=== PATIENT | female | born 1990 | race Hispanic/Latino ===

== ENCOUNTER 2016-04-05 15:06 | Inpatient (IN) | payer OTHER ==
[2016-04-05] MEDS ORDERED: PEPCID PO ONE (15:10)
[2016-04-05] MEDS ORDERED: TYLENOL PO PRN (15:10)
[2016-04-05] MEDS ORDERED: PEPCID PO PRN (15:10)
[2016-04-05] MEDS ORDERED: LR 500 ML IV ONE (15:10)
[2016-04-05] MEDS ORDERED: REGLAN PO ONE (15:10)
[2016-04-05] MEDS ORDERED: AMPICILLIN 2 GM/NS 100 ML IV ONE (15:10)
[2016-04-05] MEDS ORDERED: PEPCID IV PRN (15:10)
[2016-04-05] MEDS ORDERED: STADOL IV PRN (15:10)
[2016-04-05] MEDS ORDERED: ZOFRAN IV PRN (15:10)
[2016-04-05] MEDS ORDERED: KEFZOL 1 GM/D5W 50 ML IV PRN (15:10)
[2016-04-05] MEDS ORDERED: SODIUM CHLORIDE 0.9% INJ SCH (15:15)
[2016-04-05] MEDS ORDERED: LR 1,000 ML IV SCH (15:15)
[2016-04-05] MEDS ORDERED: PITOCIN 30 UNITS/LR 500 ML IV SCH (15:15)
[2016-04-05 16:16] LABS: URINE SOURCE VOIDED
[2016-04-05 16:21] LABS: BILIRUBIN URINE NEGATIVE (NEGATIVE); BLOOD URINE 2+ (NEGATIVE); CLARITY CLEAR (CLEAR); COLOR AMBER; GLUCOSE URINE NEGATIVE (NEGATIVE); LEUKOCYTES URINE 1+ (NEGATIVE); NITRITE URINE NEGATIVE (NEGATIVE); PH URINE 6.5; PROTEIN URINE 1+(30 mg/dL) mg/dL (NEGATIVE); SP GRAVITY URINE 1.015; UROBILINOGEN URINE 4+(12 mg/dL)
[2016-04-05 16:30] LABS: PROTEIN CREAT RATIO 0.3; UR CREAT RANDOM 218.1 mg/dL (11-20); UR PROT RANDOM 59.7 mg/dL
[2016-04-05 16:32] LABS: BASO% 0.2 % (0.0-0.8); EOS# 0.03 X1000 (0.0-0.7); EOS% 0.2 % (0.0-10.0); HEMATOCRIT 30.1 % (37.0-47.0); HEMOGLOBIN 9.5 g/dL (12.0-16.0); IMM GRAN# 0.03 X1000 (0.0-0.04); IMM GRAN% 0.2 % (0.0-0.5); LYMPH# 2.25 X1000 (1.2-3.4); LYMPH% 17.7 % (20.5-51.1); MANUAL DIFF NEEDED? YES; MCH 22.9 PG (27-31); MCHC 31.6 g/dL (33-37); MCV 72.7 FL (81-99); MONO# 0.76 X1000 (0.11-0.59); MPV 11.8 FL (7.4-10.4); NEUT% 75.7 % (42.2-75.2); PLT 256 X1000 (130-400); RBC 4.14 XMIL (4.2-5.4)
[2016-04-05 16:56] LABS: LYMPHS 17 % (21-51); MONO 6 % (1-9)
[2016-04-05] MEDS ORDERED: XYLOCAINE-MPF 1% ONE (17:54)
[2016-04-05] MEDS ORDERED: AMPICILLIN 1 GM/NS 50 ML IV SCH (19:11)
[2016-04-05] MEDS ORDERED: BENADRYL PO PRN (19:53)
[2016-04-05] MEDS ORDERED: MINERAL OIL MISC PRN (19:53)
[2016-04-05] MEDS ORDERED: XYLOCAINE-MPF 1% INJ PRN (19:53)
[2016-04-05] MEDS ORDERED: AMBIEN PO PRN (19:53)
[2016-04-05] MEDS ORDERED: CYTOTEC PO PRN (19:53)
[2016-04-05] MEDS ORDERED: M-M-R II VACCINE SUBQ ONE (19:53)
[2016-04-05] MEDS ORDERED: BOOSTRIX VACCINE IM ONE (19:53)
[2016-04-05] MEDS ORDERED: PITOCIN IM PRN (19:53)
[2016-04-05] MEDS ORDERED: PITOCIN 30 UNITS/LR 500 ML IV ONE (19:53)
[2016-04-05] MEDS ORDERED: PERCOCET-10 PO PRN (19:53)
[2016-04-05] MEDS ORDERED: HYDROXYZINE PO PRN (19:53)
[2016-04-05] MEDS ORDERED: HYDROXYZINE IM PRN (19:53)
[2016-04-05] MEDS ORDERED: PERI MEDS (DERMOPLAST/NUPERCAINAL/TUCKS) MISC PRN (19:53)
[2016-04-05] MEDS ORDERED: MOTRIN PO PRN (19:53)
[2016-04-05] MEDS ORDERED: PERCOCET-5 PO PRN (19:53)
[2016-04-05] MEDS ORDERED: BENADRYL IV PRN (19:53)
[2016-04-05] MEDS ORDERED: PITOCIN 20 UNITS/LR 1,000 ML IV SCH (20:00)
[2016-04-06] MEDS: PERICOLACE PO SCH ×2 (00:58→20:18)
[2016-04-06 07:13] LABS: BASO% 0.1 % (0.0-0.8); EOS# 0.04 X1000 (0.0-0.7); EOS% 0.2 % (0.0-10.0); HEMATOCRIT 26.4 % (37.0-47.0); HEMOGLOBIN 8.1 g/dL (12.0-16.0); IMM GRAN# 0.04 X1000 (0.0-0.04); IMM GRAN% 0.2 % (0.0-0.5); LYMPH# 2.68 X1000 (1.2-3.4); LYMPH% 16.1 % (20.5-51.1); MANUAL DIFF NEEDED? YES; MCH 22.6 PG (27-31); MCHC 30.7 g/dL (33-37); MCV 73.5 FL (81-99); MONO# 1.47 X1000 (0.11-0.59); MONO% 8.8 % (1.7-9.3); MPV 12.6 FL (7.4-10.4); NEUT% 74.6 % (42.2-75.2); PLT 241 X1000 (130-400); RBC 3.59 XMIL (4.2-5.4)
[2016-04-06 07:55] LABS: LYMPHS 16 % (21-51); MONO 4 % (1-9)
--- NOTE | 2016-04-06 09:20 | OPERATIVE NOTE ---
PROCEDURE DATE : 04/06/2016 DELIVERY NOTE: This 25-year-old G3, P2-0-0-2, at 44 weeks and 1 day by unsure last menstrual period, insufficient care, gestation HTN, admitted in active labor, delivered a viable male via normal spontaneous vaginal delivery without epidural. The was delivered in right occiput anterior position over intact perineum. No nuchal cord was present. There was a body cordx1 that was present. The cord was clamped and cut and the was placed on the mother' s abdomen. The was bulb suctioned. The placenta was delivered spontaneously and intact with a 3 vessel cord. The fundus was firm with massage and use of IV Pitocin. There were no lacerations noted. The male weighed 3890 g with Apgars of 4 and 9. EBL was 250 mL. Excellent hemostasis was noted. Mother and were transferred to in stable condition. Dr. Kenyatta Baltazar performed delivery. [facility]
[2016-04-06] MEDS: FERROUS SULFATE PO SCH ×2 (09:55→20:18)
--- NOTE | 2016-04-06 13:17 | OB/GYN PROGRESS NOTE ---
Progress Note OB - . OB Progress Note: Vital Signs - 24 hr 04/05/16 04/05/16 04/06/16 15:10 20:00 00:05 Temperature 98.1 F 97.6 F 98 F Pulse Rate 109 H 97 H 105 H Respiratory 20 18 18 Rate Blood Pressure 146/89 126/73 142/63 O2 Sat by Pulse 98 97 97 Oximetry 04/06/16 04/06/16 04/06/16 04:00 09:52 12:00 Temperature 97.9 F Pulse Rate 99 H 105 H 100 H Respiratory 18 15 15 Rate Blood Pressure 117/67 102/56 125/76 O2 Sat by Pulse 100 Oximetry Laboratory Results - last 24 hr 04/05/16 04/05/16 04/05/16 15:30 15:30 15:38 WBC RBC Hgb Hct MCV MCH MCHC RDW Std Deviation Plt Count MPV Immature Gran % (Auto) Neut % (Auto) Lymph % (Auto) [place] % (Auto) Eos % (Auto) Baso % (Auto) Immature Gran # (Auto) Neut # (Auto) Lymph # (Auto) [place] # (Auto) Eos # (Auto) Baso # (Auto) Segmented Neutrophils Lymphocytes Monocytes Glucose Uric Acid Urine Source VOIDED Urine Color KISHORE Urine Clarity CLEAR Urine pH 6.5 Ur Specific [place] 1.015 Urine Protein 1+(30 mg/dL) A Urine Ketones 1+(Small) A Urine Blood 2+ A Urine Nitrite NEGATIVE Urine Bilirubin NEGATIVE Urine Urobilinogen 4+(12 mg/dL) Urine WBC 1+ A Ur Random Creatinine 218.1 H U Random Total Protein 59.7 Protein/Creatinin Ratio 0.3 Urine Glucose NEGATIVE RPR NON-REACTIVE [place] Immunity Screen 04/05/16 04/05/16 04/05/16 15:38 15:38 15:38 WBC 12.71 H RBC 4.14 L Hgb 9.5 L Hct 30.1 L MCV 72.7 L MCH 22.9 L MCHC 31.6 L RDW Std Deviation 15.6 H Plt Count 256 MPV 11.8 H Immature Gran % (Auto) 0.2 Neut % (Auto) 75.7 H Lymph % (Auto) 17.7 L [place] % (Auto) 6.0 Eos % (Auto) 0.2 Baso % (Auto) 0.2 Immature Gran # (Auto) 0.03 Neut # (Auto) 9.62 H Lymph # (Auto) 2.25 [place] # (Auto) 0.76 H Eos # (Auto) 0.03 Baso # (Auto) 0.02 Segmented Neutrophils 77 H Lymphocytes 17 L Monocytes 6 Glucose 85 Uric Acid 5.4 Urine Source Urine Color Urine Clarity Urine pH Ur Specific [place] Urine Protein Urine Ketones Urine Blood Urine Nitrite Urine Bilirubin Urine Urobilinogen Urine WBC Ur Random Creatinine U Random Total Protein Protein/Creatinin Ratio Urine Glucose RPR Rubella Immunity Screen 04/06/16 04/06/16 04:45 04:55 WBC 16.69 H RBC 3.59 L Hgb 8.1 L Hct 26.4 L MCV 73.5 L MCH 22.6 L MCHC 30.7 L RDW Std Deviation 15.5 H Plt Count 241 MPV 12.6 H Immature Gran % (Auto) 0.2 Neut % (Auto) 74.6 Lymph % (Auto) 16.1 L [place] % (Auto) 8.8 Eos % (Auto) 0.2 Baso % (Auto) 0.1 Immature Gran # (Auto) 0.04 Neut # (Auto) 12.44 H Lymph # (Auto) 2.68 [place] # (Auto) 1.47 H Eos # (Auto) 0.04 Baso # (Auto) 0.02 Segmented Neutrophils 80 H Lymphocytes 16 L Monocytes 4 Glucose Uric Acid Urine Source Urine Color Urine Clarity Urine pH Ur Specific [place] Urine Protein Urine Ketones Urine Blood Urine Nitrite Urine Bilirubin Urine Urobilinogen Urine WBC Ur Random Creatinine U Random Total Protein Protein/Creatinin Ratio Urine Glucose RPR Rubella Immunity Screen IMMUNE S: Patient resting comfortably without complaint. Pain well controlled. Voiding without difficulty. Tolerating diet. . Denies vaginal bleeding. Ambulating without difficulty. Exam: Gen: NAD, alert Abd: soft, nontender, fundus 2 finger breadths below umbilicus Pelvis: scant lochia on pad A/P: 25yo PPD#1 s/p @ 44w1d of 3890g male , insufficient care, gHTN, iron deficiency anemia, doing well -continue routine care -ferrous sulfate BID -ibuprofen, percocet for pain -continue regular diet -encourage ambulation Discharge: tonight after 8:00pm if baby cleared. If not in the AM Follow up with Dr. Screws at clinic on 05/17/16 @ 8:30am -Kenyatta Baltazar MD [employer]
[2016-04-07 08:42] VITALS: BP 117/74
--- NOTE | 2016-04-08 14:28 | DISCHARGE SUMMARY ---
ADMISSION DATE: 04/05/2016 DISCHARGE DATE: 04/07/2016 PREOPERATIVE DIAGNOSES: 1. Term gestation at 44 weeks and 1 day. 2. Gestational hypertension. 3. Active labor. POSTOPERATIVE DIAGNOSES: 1. Term gestation at 44 weeks and 1 day. 2. Gestational hypertension. 3. Active labor. 4. Status post spontaneous vaginal delivery. DELIVERING PHYSICIAN: Kenyatta Baltazar MD. DATE OF DELIVERY: April 05, 2016. PROCEDURE: Spontaneous vaginal delivery. FINDINGS: Male weighing 3890 grams. Apgars were 4 and 9. ESTIMATED BLOOD LOSS: 250 mL. COMPLICATIONS: None. DISCHARGE INSTRUCTIONS: The patient to follow up in clinic with Dr. Baltazar in six weeks. The patient is to have nothing per vagina for the next six weeks. The patient given ibuprofen and iron prescriptions.
== END 2016-04-07 10:55 | disposition home or self-care (01) | DRG 775 ==
LOC: P.LD 15:06 → P.WC 04-06 08:02
PROVIDERS: ADMIT Student in an Organized Health Care Education/Training Program; ATTEND Student in an Organized Health Care Education/Training Program
PROC: 10E0XZZ Delivery of Products of Conception, External Approach (ICD-10-PCS; principal; 2016-04-05)
PROC: 10907ZC Drainage of Amniotic Fluid, Therapeutic from Products of Conception, Via Natural or Artificial Opening (ICD-10-PCS; 2016-04-05)
DX: O13.4 Gestational [pregnancy-induced] hypertension without significant proteinuria, complicating childbirth (principal); D50.9 Iron deficiency anemia, unspecified; Z37.0 Single live birth; O69.1XX0 Labor and delivery complicated by cord around neck, with compression, not applicable or unspecified; Z3A.49 Greater than 42 weeks gestation of pregnancy; O99.02 Anemia complicating childbirth; Z36 Encounter for antenatal screening of mother
CPT/HCPCS: 36415; 76805; 81003; 82570; 82947; 84156; 84550; 85025; 86592; 86762; J0290; J0595; J2405; J2590; J7120